=== PATIENT | male | born 1985 | race Hispanic/Latino ===

== ENCOUNTER 2020-12-29 13:44 | Emergency (ER) | payer SELFPAY ==
[2020-12-29 15:17] LABS: SARS-COV-2 RT PCR POSITIVE (NEGATIVE)
--- NOTE | 2020-12-29 15:23 | EDPHYS ---
Physician Documentation [facility] Name: Sb Baker Age: 35 yrs Sex: Male : 1985 Arrival Date: 12/29/2020 Time: 13:46 Bed Waiting Private MD: ED Physician Ilan Alvarez HPI: 12/29 15:22 This 35 yrs old Male presents to ER via Ambulatory with complaints of kb Headache, Body aches, Shortness Of Breath. 15:22 The patient or guardian reports cough, that is intermittent, described as mild, with no kb sputum, difficulty breathing, flu symptoms, low-grade fever, myalgias. Onset: The symptoms/episode began/occurred 5 day(s) ago. Severity of symptoms: At their worst the symptoms were moderate, in the emergency department the symptoms are unchanged. Modifying factors: The symptoms are alleviated by nothing, the symptoms are aggravated by nothing. Associated signs and symptoms: Pertinent positives: fever. The patient has not experienced similar symptoms in the past. The patient has not recently seen a physician. Historical: - Allergies: 13:57 No Known Allergies; ll1 - PMHx: 13:57 None; ll1 - PSHx: 13:57 None; ll1 - Immunization history:: Flu vaccine is not up to date. - Social history:: Smoking status: Patient denies any tobacco usage or history of. ROS: 15:20 Cardiovascular: Negative for chest pain, palpitations, and edema, Abdomen/GI: Negative kb for abdominal pain, nausea, vomiting, diarrhea, and constipation, Back: Negative for injury and pain, MS/Extremity: Negative for injury and deformity, Skin: Negative for injury, rash, and discoloration. 15:20 Constitutional: Positive for body aches, chills, fatigue, fever, malaise. 15:20 Respiratory: Positive for cough, shortness of breath. 15:20 Neuro: Positive for headache. Exam: 15:20 Constitutional: This is a well developed, well nourished patient who is awake, alert, kb and in no acute distress. Head/Face: Normocephalic, atraumatic. Chest/axilla: Normal chest wall appearance and motion. Cardiovascular: Regular rate and rhythm with a normal S1 and S2. No gallops, murmurs, or rubs. No pulse deficits. Respiratory: Lungs have equal breath sounds bilaterally, clear to auscultation. No rales, rhonchi or wheezes noted. No increased work of breathing, no retractions or nasal flaring. Abdomen/GI: Soft, non-tender, with normal bowel sounds. No distension. No guarding or rebound. No evidence of tenderness throughout. Skin: Warm, dry with normal turgor. Normal color with no rashes, no lesions, and no evidence of cellulitis. MS/ Extremity: Pulses equal, no cyanosis. Neurovascular intact. Full, normal range of motion. Neuro: Awake and alert, GCS 15, oriented to person, place, time, and situation. Cranial nerves II-XII grossly intact. Moves all extremities. Sensory grossly intact. Cerebellar exam normal. Normal gait. Vital Signs: 13:54 BP 144 / 97; Pulse 114; Resp 18; Temp 100.9(O); Pulse Ox 95% ; Weight 131.54 kg; Height ll1 5 ft. 11 in. (180.34 cm); Pain 4/10; 13:54 Body Mass Index 40.45 (131.54 kg, 180.34 cm) ll1 MDM: 13:57 Patient medically screened. kb 15:19 Data reviewed: vital signs, nurses notes. Data interpreted: Pulse oximetry: on room air kb is 95 %. Interpretation: normal. Counseling: I had a detailed discussion with the patient and/or guardian regarding: the historical points, exam findings, and any diagnostic results supporting the discharge/admit diagnosis, lab results, the need for outpatient follow up, a family practitioner, to return to the emergency department if symptoms worsen or persist or if there are any questions or concerns that arise at home. 12/29 15:17 Order name: COVID-19/FLU A+B; Complete Time: 15:19 EDMS Administered Medications: 16:59 CANCELLED (Patient Refused): Ibuprofen 600 mg PO once ll1 Disposition: 12/30 06:58 Co-signature as Attending Physician, Ilan Alvarez MD I agree with the assessment and rolanda plan of care. Disposition: 12/29/20 15:22 Discharged to Home. Impression: Coronavirus infection, unspecified. - Condition is Stable. - Discharge Instructions: Viral Respiratory Infection, [id number], COVID-19. - Medication Reconciliation Form, Thank You Letter, Antibiotic Education, Prescription Opioid Use, Work release form form. - Follow up: Emergency Department; When: As needed; Reason: Worsening of condition. Follow up: Private Physician; When: 2 - 3 days; Reason: Recheck today's complaints, Continuance of care, Re-evaluation by your physician. Signatures: Dispatcher [employer] [facility] EdwardoGalenAgueda, AGENCY OPERATOR-C AGENCY OPERATOR-Ilan Bryant MD MD cha Lewis, Lynsay, RN RN ll1 Corrections: (The following items were deleted from the chart) 12/29 14:21 13:58 Influenza Screen (A \T\ B)+BA.LAB.BRZ ordered. [facility] EDPA 14:21 13:58 CORONAVIRUS+MR.LAB.BRZ ordered. [facility] EDPA 15:37 15:22 12/29/2020 15:22 Discharged to Home. Impression: Coronavirus infection, ll1 unspecified. Condition is Stable. Forms are Medication Reconciliation Form, Thank You Letter, Antibiotic Education, Prescription Opioid Use. Follow up: Emergency Department; When: As needed; Reason: Worsening of condition. Follow up: Private Physician; When: 2 - 3 days; Reason: Recheck today's complaints, Continuance of care, Re-evaluation by your physician. kb
--- NOTE | 2020-12-29 15:23 | ER ---
Nurse's Notes [facility] Name: Sb Baker Age: 35 yrs Sex: Male : 1985 Arrival Date: 12/29/2020 Time: 13:46 Bed Waiting Private MD: Diagnosis: Coronavirus infection, unspecified Presentation: 12/29 13:54 Chief complaint: Patient states: Body aches, SOB/cough, FULTON for 5 days. 101 temp at ll1 home. Coronavirus screen: Client denies travel out of the [place] in the last 14 days. cough unrelated to allergies, difficulty breathing, fatigue, fever, headache, loss of taste or smell, Client presents with at least one sign or symptom that may indicate coronavirus-19. Standard/surgical mask placed on the client. Ebola Screen: Patient denies travel to an Ebola-affected area in the 21 days before illness onset. Initial Sepsis Screen: Does the patient meet any 2 criteria? HR > 90 bpm. No. Patient's initial sepsis screen is negative. Does the patient have a suspected source of infection? No. Patient's initial sepsis screen is negative. Risk Assessment: Do you want to hurt yourself or someone else? Patient reports no desire to harm self or others. Onset of symptoms was December 24, 2020. 13:54 Method Of Arrival: Ambulatory [facility] 13:54 Acuity: ALLYSSA 3 ll1 Triage Assessment: 14:00 Headache History: Denies prior headaches. General: Appears in no apparent distress. ll1 Behavior is calm, cooperative, appropriate for age. Pain: Complains of pain in head Pain currently is 5 out of 10 on a pain scale. Pain began 2-3 days ago. Also complains of no other associated symptoms. Neuro: Level of Consciousness is awake, alert, obeys commands, Oriented to person, place, time, situation, Appropriate for age Pin Worker are equal bilaterally Moves all extremities. Full function Gait is steady, Speech is normal, Facial symmetry appears normal, Reports headache. Cardiovascular: No deficits noted. Respiratory: Reports shortness of breath cough that is Airway is patent Trachea midline Respiratory effort is even, unlabored, Respiratory pattern is regular, symmetrical, Breath sounds are clear bilaterally. GI: No deficits noted. Musculoskeletal: Circulation, motion, and sensation intact. Capillary refill < 3 seconds, Range of motion: intact in all extremities, Reports pain in body aches. Historical: - Allergies: 13:57 No Known Allergies; ll1 - PMHx: 13:57 None; ll1 - PSHx: 13:57 None; ll1 - Immunization history:: Flu vaccine is not up to date. - Social history:: Smoking status: Patient denies any tobacco usage or history of. Screenin:42 Abuse screen: Denies threats or abuse. Nutritional screening: No deficits noted. ll1 Tuberculosis screening: No symptoms or risk factors identified. Fall Risk None identified. Total Drew Fall Scale indicates No Risk (0-24 pts). Assessment: 15:00 Reassessment: No changes from previously documented assessment. Patient and/or family ll1 updated on plan of care and expected duration. Pain level reassessed. Pain: Denies pain. 15:30 Reassessment: No changes from previously documented assessment. Patient and/or family ll1 updated on plan of care and expected duration. Pain level reassessed. Patient is alert, oriented x 3, equal unlabored respirations, skin warm/dry/pink. Vital Signs: 13:54 BP 144 / 97; Pulse 114; Resp 18; Temp 100.9(O); Pulse Ox 95% ; Weight 131.54 kg; Height ll1 5 ft. 11 in. (180.34 cm); Pain 4/10; 13:54 Body Mass Index 40.45 (131.54 kg, 180.34 cm) ll1 ED Course: 13:46 Patient arrived in ED. mr 13:53 Edwardo AguedaVIKAS [facility] is [facility]. kb 13:53 Ilan Alvarez MD is Attending Physician. kb 13:56 Triage completed. ll1 13:57 Arm band placed on. ll1 14:42 Patient has correct armband on for positive identification. Bed in low position. Call ll1 light in reach. Side rails up X 1. Cardiac monitoring not applicable on this patient. 15:37 No provider procedures requiring assistance completed. Patient did not have IV access ll1 during this emergency room visit. Administered Medications: 16:59 CANCELLED (Patient Refused): Ibuprofen 600 mg PO once ll1 Outcome: 15:22 Discharge ordered by . porfirio 15:37 Patient left the ED. ll1 15:37 Discharged to home ll1 15:37 Condition: stable 15:37 Discharge instructions given to patient, Instructed on discharge instructions, follow up and referral plans. Demonstrated understanding of instructions, follow-up care. Signatures: Agueda Brooke, VIKAS [employer] SERVICE CASHIER-Keith Arron Carina peters Mayte Greco RN RN ll1 Corrections: (The following items were deleted from the chart) 13:58 13:54 BP 144 / 97; Pulse 127bpm; Resp 18bpm; Pulse Ox 95%; Temp 97.6F; 131.54 kg; ll1 Height 5 ft. 11 in.; BMI: 40.4; Pain 4/10; ll1 14:02 13:54 BP 144 / 97; Pulse 127bpm; Resp 18bpm; Pulse Ox 95%; Temp 100.9F Oral; 131.54 kg; ll1 Height 5 ft. 11 in.; BMI: 40.4; Pain 4/10; ll1 14:41 14:40 Headache History: Denies prior headaches. ll1 ll1 14:42 14:40 General: Appears in no apparent distress. Behavior is calm, cooperative, ll1 appropriate for age, ll1 14:42 14:40 Pain: Complains of pain in head Pain currently is 5 out of 10 on a pain scale. ll1 Pain began 2-3 days ago. Also complains of no other associated symptoms. ll1 14:42 14:40 Neuro: Level of Consciousness is awake, alert, obeys commands, Oriented to ll1 person, place, time, situation, Appropriate for age Pin Worker are equal bilaterally Moves all extremities. Full function Gait is steady, Speech is normal, Facial symmetry appears normal, Reports headache ll1 14:42 14:40 Cardiovascular: No deficits noted. ll1 ll1 14:42 14:40 Respiratory: Reports shortness of breath cough that is Airway is patent Trachea ll1 midline Respiratory effort is even, unlabored, Respiratory pattern is regular, symmetrical, Breath sounds are clear bilaterally. ll1 14:42 14:40 GI: No deficits noted. ll1 ll1 14:42 14:40 Musculoskeletal: Circulation, motion, and sensation intact. Capillary refill < 3 ll1 seconds, Range of motion: intact in all extremities, Reports pain in body aches ll1 14:42 14:40 Headache History: Denies prior headaches. ll1 ll1
[2020-12-30 12:51] VITALS: BP 144/97; TEMP 100.9; O2SAT 95
== END 2020-12-29 15:37 | disposition home or self-care (01) ==
LOC: ER 13:44
DX: U07.1 COVID-19 (principal)
CPT/HCPCS: 0240U; 99281